=== PATIENT | female | born 1975 | race African-American/Black ===

== ENCOUNTER 2017-01-29 07:24 | Emergency (ER) | payer OTHER ==
[~2017-01-29 07:24] MED LIST: ULTRAM PO; VICODIN 5/1 TAB 5/50 PO
== END 2017-01-29 07:25 | disposition home or self-care (01) ==
LOC: CED 07:24
DX: S16.1XXA Strain of muscle, fascia and tendon at neck level, initial encounter (principal); R20.9 Unspecified disturbances of skin sensation; F17.200 Nicotine dependence, unspecified, uncomplicated; J45.909 Unspecified asthma, uncomplicated; M70.941 Unspecified soft tissue disorder related to use, overuse and pressure, right hand; M70.942 Unspecified soft tissue disorder related to use, overuse and pressure, left hand; X58.XXXA Exposure to other specified factors, initial encounter
CPT/HCPCS: 99283

== ENCOUNTER 2017-03-05 01:27 | Emergency (ER) | payer OTHER ==
--- NOTE | ~2017-03-05 | CR181 ---
[facility] A Service of [facility] & [facility] RADIOLOGY TEXT RESULTS PATIENT: FLORENCE HENDRICKS LOCATION: [facility] : 77 UNIT #: [id number] AGE: [address]: Christ Mcclure MD SEX: F ORDER DR: [id number] [facility] [address] [place], [place] [address] [id number] E MR#: [id number] Acc #: [id number] NAME: FLORENCE HENDRICKS : 1975 SEX: F STUDY DATE/TIME: 03/05/2017 0:53 UNIT: [facility] ROOM: STUDY DESCRIPTION: CR Lumbar Spine 2 or 3 Views Attending Physician: Christ Mcclure M.D. Ordering Physician: Christ Mcclure M.D. Primary Care Physician: [facility] MEDICAL IMAGING REPORT This report is preliminary unless electronic signature is present EXAM Lumbar spine series 03/05/2017 HISTORY 41-year-old female in the ED complaining of 4-day history of low back pain. No reported acute injury. TECHNIQUE Three-view lumbar spine series. FINDINGS Limited radiographic exposure in part related to patient body habitus. No acute or chronic fracture deformity or other osseous abnormality is demonstrated. Lumbar disc spaces and lumbar vertebral alignment are within normal limits. IMPRESSION Negative lumbar spine series. Dictated by... Abdulaziz Wagner M.D. THIS IS AN ELECTRONICALLY VERIFIED REPORT Abdulaziz Wagner M.D. at 03/05/2017 5:59 AM BERT/singh TD: 03/05/2017 02:01 JOB #: [id number] MEDICAL IMAGING REPORT Page 1 of 1 COPY
== END 2017-03-05 03:24 | disposition home or self-care (01) ==
LOC: CED 01:27
DX: M54.5 Low back pain (principal); J45.909 Unspecified asthma, uncomplicated; Z87.440 Personal history of urinary (tract) infections; F17.200 Nicotine dependence, unspecified, uncomplicated; Z87.442 Personal history of urinary calculi; Z86.73 Personal history of transient ischemic attack (TIA), and cerebral infarction without residual deficits
CPT/HCPCS: 72100; 96372; 99283; J1885